=== PATIENT | male | born 1945 | race Caucasian/White ===

== ENCOUNTER 2017-08-05 19:23 | Inpatient (IN) | payer OTHER ==
--- NOTE | 2017-08-05 20:19 | RAD ---
INDICATION: Confusion and word finding COMPARISON: None. TECHNIQUE: Contiguous axial sections of the brain were obtained from the skull base to the vertex without contrast. FINDINGS: The ventricles, cisterns and sulci are within normal limits. There is very mild periventricular and subcortical white matter hypoattenuation consistent with mild microvascular disease. At the left internal capsule there is an asymmetric and more focal area of hypoattenuation (image 14 of 32). Otherwise the ross-white matter differentiation is adequately maintained and there is no sulcal effacement. No significant focal abnormality or mass effect is present. There is no evidence for intracranial hemorrhage. There is coarse atherosclerotic calcification of the bilateral vertebral arteries and petrous carotid arteries. No significant focal osseous abnormality is present. There is a focal inspissated secretion in the visualized left maxillary sinus. In the lateral right sphenoid sinus there is an air-fluid level. The mastoid air cells are well aerated. IMPRESSION: 1. No acute intracranial hemorrhage. 2. Chronic findings include evidence of microvascular disease. There is asymmetric hypodensity at the left internal capsule relative to the right which could represent a focal infarction in the correct clinical setting. Further characterization can be made with MRI of the brain as clinically indicated. Findings were reported Dr. Virk over the telephone at 2015 hours on August 05, 2017.
[2017-08-05 20:40] LABS: Hematocrit 40 % (42-52); Hemoglobin 13.4 g/dl (14.0-18.0); Mean Corpuscular HGB Conc 33 g/dl (31-36); Mean Corpuscular Hemoglobin 29 pg (27-31); Mean Corpuscular Volume 88 fL (80-94); Mean Platelet Volume 9 um3 (7.4-10.4); Red Blood Count 4.55 10^6/ul (4.0-5.4); Red Cell Distribution Width 14 % (10.5-15); White Blood Count 5.6 10^3/ul (3.5-10.8)
[2017-08-05 20:54] LABS: ALT 15 U/L (7-52); Albumin 3.7 g/dL (3.2-5.2); Alkaline Phosphatase 43 U/L (34-104); BUN/Creatinine Ratio 31.3 (8-20); Blood Urea Nitrogen 31 mg/dL (6-24); CO2 Carbon Dioxide 25 mmol/L (22-32); Calcium 8.7 mg/dL (8.6-10.3); Chloride 104 mmol/L (101-111); EGFR African American 96.1 (>60); EGFR Non-African American 74.7 (>60); Globulin 2.3 g/dL (2-4); Glucose 335 mg/dL (70-100); Sodium 134 mmol/L (133-145)
[2017-08-05 21:12] LABS: Urine Bilirubin Negative (Negative); Urine Glucose 3+(>=500 mg/dL) (Negative); Urine Nitrite Negative (Negative)
[2017-08-05 21:18] LABS: AST 17 U/L (13-39); Anion Gap 5 mmol/L (2-11); Potassium 4.3 mmol/L (3.5-5.0)
[2017-08-05] MEDS ORDERED: Aspirin Low Dose CHEW TAB* 81 MG PO ONE (21:29)
[2017-08-05] MEDS ORDERED: Acetaminophen TAB* 325 MG PO PRN (21:29)
[2017-08-05] MEDS ORDERED: Ondansetron INJ* 2 MG/ML VIAL IV PRN (21:29)
[2017-08-05] MEDS ORDERED: Albuterol 2.5 MG/3 ML NEB.SOL* (0.083%) INH PRN (21:29)
[2017-08-05] MEDS ORDERED: Melatonin (NF) 3 MG TAB PO PRN (21:29)
[2017-08-05 21:32] LABS: Alcohol < 10 mg/dL (<10)
--- NOTE | 2017-08-05 21:41 | ED ---
Roni Mccabe Tiffany, scribed for Dexter Virk MD on 08/05/17 at 1947 . Neurological HPI - HPI Summary HPI Summary: This patient is a 71 year old M presenting to [facility] accompanied by two family members with a chief complaint of difficulty finding words since this afternoon at 14:00. The patient woke up and was very confused. LKN was 08/04/17 at 23:00. Symptoms aggravated by nothing. Symptoms alleviated by nothing. Patient denies weakness, vision, hearing issues, headache, chest pain, SOB, abdominal pain, back pain, and diarrhea. The takes baby Aspirin, anti-cholesterol and anti-hypertension medications. - History of Current Complaint Chief Complaint: EDNeurologicalDeficit Stated Complaint: STROKE LIKE SYMPTOMS Hx Obtained From: Patient Onset/Duration: Started hours ago - This morning, Still Present, Worse Since - This afternoon Timing: Constant Aggravating: Nothing Alleviating: Nothing Associated Signs and Symptoms: Positive: Negative - weakness, vision, hearing issues, headache, chest pain, SOB, abdominal pain, back pain, and diarrhea. - Allergy/Home Medications Allergies/Adverse Reactions: Allergies Allergy/AdvReac Type Severity Reaction Status Date / Time No Known Allergies Allergy Verified 08/05/17 19:26 PMH/Surg Hx/FS Hx/Imm Hx Previously Healthy: No Endocrine/Hematology History: Reports: Hx Diabetes Cardiovascular History: Reports: Hx Hypercholesterolemia, Hx Hypertension - Surgical History Surgery Procedure, Year, and Place: 4x bypass - Immunization History Date of Tetanus Vaccine: unk Date of Influenza Vaccine: unk Infectious Disease History: No Infectious Disease History: Denies: Traveled Outside the [place] in Last 30 Days - Family History Known Family History: Positive: Other - Mother had stroke, father had cancer - Social History Occupation: Retired Alcohol Use: Occasionally Hx Substance Use: No Substance Use Type: Reports: None Hx Tobacco Use: Yes Smoking Status (MU): Former Smoker Review of Systems Negative: Blurred Vision Positive: Other - NEGATIVE: Hearing changes Negative: Chest Pain Negative: Shortness Of Breath Negative: Abdominal Pain, Diarrhea Positive: Other - NEGATIVE: Back pain Neurological: Other - Difficulty finding words Negative: Headache, Weakness All Other Systems Reviewed And Are Negative: Yes Physical Exam Triage Information Reviewed: Yes Vital Signs Reviewed: Yes Appearance: Positive: Well-Appearing, No Pain Distress Skin: Positive: Warm, Skin Color Reflects Adequate Perfusion Head/Face: Positive: Normal Head/Face Inspection Eyes: Positive: EOMI ENT: Positive: Normal ENT inspection Neck: Positive: Supple, Nontender Respiratory/Lung Sounds: Positive: Clear to Auscultation, Breath Sounds Present Cardiovascular: Positive: RRR. Negative: Murmur Abdomen Description: Positive: Nontender Musculoskeletal: Positive: Strength/ROM Intact Neurological: Positive: Sensory/Motor Intact, Alert, Oriented to Person Place, Time, CN Intact II-III Psychiatric: Positive: Normal - [place] Coma Scale Best Eye Response: 4 - Spontaneous Best Motor Response: 6 - Obeys Commands Best Verbal Response: 5 - Oriented Coma Scale Total: 14 Diagnostics - Laboratory Lab Results: Lab Results 08/05/17 Range/Units 19:53 POC Glucose (mg/dL) 393 H (70-100) mg/dL Result Diagrams: 08/05/17 20:33 08/05/17 20:33 Lab Statement: Any lab studies that have been ordered have been reviewed, and results considered in the medical decision making process. - CT Brain CT Interpretation Completed By: Radiologist - 1. No acute intracranial hemorrhage. 2. Chronic findings include evidence of microvascular disease. There is asymmetric hypodensity at the left internal capsule relative to the right which could represent a focal infarction in the correct clinical setting. Further characterization can be made with MRI of the brain as clinically indicated. ED physician has reviewed this radiology report and agrees. - EKG 20:10 Cardiac Rate: NL EKG Rhythm: Sinus Rhythm - 62 BPM EKG Interpretation: Non-STEMI NIH Scale - NIH Scale Level of Consciousness: Alert/Keenly Responsive Ask Patient the Month and His/Her Age: One Correct/Not Aphasic Ask Pt to Open/Close Eyes and Audio Visual Engineer/Release Non-Paretic Hand: Both Correctly Best Gaze (Only Horizontal Eye Movement): Normal Visual Field Testing: No Visual Loss Facial Paresis-Pt to Smile & Close Eyes or Grimace Symmetry: Normal/Symmetrical Motor Function - Right Arm: No Drift-Holds 10 Seconds Motor Function - Left Arm: No Drift-Holds 10 Seconds Motor Function - Right Leg: No Drift-Holds 10 Seconds Motor Function - Left Leg: No Drift-Holds 10 Seconds Limb Ataxia-Must be out of Proportion to Weakness Present: Absent Sensory (Use Pinprick to Test Arms/Legs/Trunk/Face): Normal Best Language (Describe Picture, Name Items): No Aphasia Dysarthria (Read Several Words): Normal Extinction and Inattention: No Abnormality Total Score: 1 Course/Dx - Course Course Of Treatment: 71 yr old male with difficulty with word finding, elevated blood sugar, and last well known time on 08/[address] Nova, Toxicology ordered, and admit to hospitalists, morning MRI. - Diagnoses Provider Diagnoses: Altered mental status, unspecified, Hyperglycemia Discharge - Discharge Plan Condition: Good Disposition: ADMITTED TO [facility] Referrals: No Primary Care Phys,NOPCP [Primary Care Provider] - The documentation as recorded by the Roni gardner Tiffany accurately reflects the service I personally performed and the decisions made by , Dexter Virk MD.
[2017-08-05] MEDS: NS 0.9% 1000 ML* 1,000 ML IV SCH (23:36)
--- NOTE | 2017-08-06 01:12 | HP ---
H&P (Free Text) History and Physical: PCP: Dr Sanford in [place] Date/Time: 08/05/2017 2115 CC: word searching, confusion HPI: Mr Topete is a 71YO male HX IDDM since age 18, CAD/4vCABG, HTN, & HLD who lives in [place] and is in town for [place]. He was last known normal 08/04 ~2300. This AM he awoke mildly confused and began having word searching ~1400 for which he presents. He denies focal W/N/T, change in swallow/vision, chest pain, SOB, palpitations, headache, or other issues. 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; full code status FamHx: Mother: passed in her 80s 2nd CAD; Father: passed in his 80s 2nd CAD; Sister: estranged ROS: as above, otherwise reviewed and all were negative vitals: Vital Signs Temp 36.7 C 08/05/17 22:00 Pulse 60 08/05/17 22:30 Resp 18 08/05/17 23:07 BP 137/65 08/05/17 22:30 Pulse Ox 94 08/05/17 22:30 Intake & Output 08/05/17 08/05/17 08/06/17 11:59 23:59 11:59 Weight 86.999 kg Constitutional: NAD, normally developed, well-nourished elderly white male HEENM: atraumatic; sclera/conjunctiva: anicteric/clear; hearing: clinically mildly decreased; oropharynx: clear, mucosa moist Neck: soft tissue: non-tender; thyroid: normal Pulmonary: clear to auscultation bilaterally, good aeration, no accessory muscle use CV: RR/RR, normal S1S2, no carotid bruit, no jugular venous distention, 2+ B DP/ PT, no edema Abdominal: soft, non-distended, non-tender, no rebound/guarding/rigidity, normoactive bowel sounds, no hepatosplenomegaly or masses, no costovertebral angle tenderness Musculoskeletal: general: grossly intact, no palpable tenderness Integumental: normal appearance and texture of exposed skin Neurological cranial nerves II: visual patterson tested & intact B III/IV/: symmetric light reflex, EOMI/PERRLA V: intact facial sensation VII: mild R facial droop VIII: hearing mildly decreased AU IX/X: symmetric palatal motion, no dysarthria XII: midline tongue protrusion, normal vocal articulation motor: R handed LUE: 4+/5 proximally, distally, & machine feeder floorperson strength RUE: 4+/5 proximally, distally, & machine feeder floorperson strength LLE: 4+/5 proximally & distally RLE: 4+/5 proximally & distally coordination finger/nose: slow/intact symmetric B heal/alonzo: intact B dysdiadochokinesia: present equally bilaterally sensory crude touch: intact globally vibration: detects "burning sensation" BLE, "vibration" BUE proprioception: intact x4 DTRs biceps: 1+ B triceps: 1+ B brachioradialis: 1+ B patellar: 1+ B Achilles: trace B Babinski: equivocal B Psychiatric orientation: AA&O to PPS affect: calm to mildly frustrated w/ word searching mood: cooperative eye contact: good content: reliable responses: timely insight: fair to good Testing: Lab Results 08/05/17 08/05/17 08/05/17 Range/Units 19:53 20:33 20:33 WBC 5.6 (3.5-10.8) 10^3/ul RBC 4.55 (4.0-5.4) 10^6/ul Hgb 13.4 L (14.0-18.0) g/dl Hct 40 L (42-52) % MCV 88 (80-94) fL MCH 29 (27-31) pg MCHC 33 (31-36) g/dl RDW 14 (10.5-15) % Plt Count 210 (150-450) 10^3/ul MPV 9 (7.4-10.4) um3 Neut % (Auto) 59.6 (38-83) % Lymph % (Auto) 26.7 (25-47) % [place] % (Auto) 10.0 H (1-9) % Eos % (Auto) 3.5 (0-6) % Baso % (Auto) 0.2 (0-2) % Absolute Neuts (auto) 3.4 (1.5-7.7) 10^3/ul Absolute Lymphs (auto) 1.5 (1.0-4.8) 10^3/ul Absolute Monos (auto) 0.6 (0-0.8) 10^3/ul Absolute Eos (auto) 0.2 (0-0.6) 10^3/ul Absolute Basos (auto) 0 (0-0.2) 10^3/ul Absolute Nucleated RBC 0.02 10^3/ul Nucleated RBC % 0.3 INR (Anticoag Therapy) (0.89-1.11) APTT (26.0-36.3) seconds Sodium 134 (133-145) mmol/L Potassium 4.3 (3.5-5.0) mmol/L Chloride 104 (101-111) mmol/L Carbon Dioxide 25 (22-32) mmol/L Anion Gap 5 (2-11) mmol/L BUN 31 H (6-24) mg/dL Creatinine 0.99 (0.67-1.17) mg/dL Est GFR ( Amer) 96.1 (>60) Est GFR (Non-Af Amer) 74.7 (>60) BUN/Creatinine Ratio 31.3 H (8-20) Glucose 335 H (70-100) mg/dL POC Glucose (mg/dL) 393 H (70-100) mg/dL Hemoglobin A1c (4.0-5.6) % Lactic Acid (0.5-2.0) mmol/L Calcium 8.7 (8.6-10.3) mg/dL Total Bilirubin 0.30 (0.2-1.0) mg/dL AST 17 (13-39) U/L ALT 15 (7-52) U/L Alkaline Phosphatase 43 (34-104) U/L Ammonia (16-53) mol/L Troponin I 0.00 (<0.04) ng/mL Total Protein 6.0 L (6.4-8.9) g/dL Albumin 3.7 (3.2-5.2) g/dL Globulin 2.3 (2-4) g/dL Albumin/Globulin Ratio 1.6 (1-3) Urine Color Urine Appearance Urine pH (5-9) Ur Specific [place] (1.010-1.030) Urine Protein (Negative) Urine Ketones (Negative) Urine Blood (Negative) Urine Nitrate (Negative) Urine Bilirubin (Negative) Urine Urobilinogen (Negative) Ur Leukocyte Esterase (Negative) Urine Glucose (Negative) Serum Alcohol < 10 (<10) mg/dL 08/05/17 08/05/17 08/05/17 Range/Units 20:33 20:33 20:33 WBC (3.5-10.8) 10^3/ul RBC (4.0-5.4) 10^6/ul Hgb (14.0-18.0) g/dl Hct (42-52) % MCV (80-94) fL MCH (27-31) pg MCHC (31-36) g/dl RDW (10.5-15) % Plt Count (150-450) 10^3/ul MPV (7.4-10.4) um3 Neut % (Auto) (38-83) % Lymph % (Auto) (25-47) % [place] % (Auto) (1-9) % Eos % (Auto) (0-6) % Baso % (Auto) (0-2) % Absolute Neuts (auto) (1.5-7.7) 10^3/ul Absolute Lymphs (auto) (1.0-4.8) 10^3/ul Absolute Monos (auto) (0-0.8) 10^3/ul Absolute Eos (auto) (0-0.6) 10^3/ul Absolute Basos (auto) (0-0.2) 10^3/ul Absolute Nucleated RBC 10^3/ul Nucleated RBC % INR (Anticoag Therapy) 1.01 (0.89-1.11) APTT 28.9 (26.0-36.3) seconds Sodium (133-145) mmol/L Potassium (3.5-5.0) mmol/L Chloride (101-111) mmol/L Carbon Dioxide (22-32) mmol/L Anion Gap (2-11) mmol/L BUN (6-24) mg/dL Creatinine (0.67-1.17) mg/dL Est GFR ( Amer) (>60) Est GFR (Non-Af Amer) (>60) BUN/Creatinine Ratio (8-20) Glucose (70-100) mg/dL POC Glucose (mg/dL) (70-100) mg/dL Hemoglobin A1c 7.7 H (4.0-5.6) % Lactic Acid 0.6 (0.5-2.0) mmol/L Calcium (8.6-10.3) mg/dL Total Bilirubin (0.2-1.0) mg/dL AST (13-39) U/L ALT (7-52) U/L Alkaline Phosphatase (34-104) U/L Ammonia (16-53) mol/L Troponin I (<0.04) ng/mL Total Protein (6.4-8.9) g/dL Albumin (3.2-5.2) g/dL Globulin (2-4) g/dL Albumin/Globulin Ratio (1-3) Urine Color Urine Appearance Urine pH (5-9) Ur Specific [place] (1.010-1.030) Urine Protein (Negative) Urine Ketones (Negative) Urine Blood (Negative) Urine Nitrate (Negative) Urine Bilirubin (Negative) Urine Urobilinogen (Negative) Ur Leukocyte Esterase (Negative) Urine Glucose (Negative) Serum Alcohol (<10) mg/dL 08/05/17 08/05/17 Range/Units 21:00 22:28 WBC (3.5-10.8) 10^3/ul RBC (4.0-5.4) 10^6/ul Hgb (14.0-18.0) g/dl Hct (42-52) % MCV (80-94) fL MCH (27-31) pg MCHC (31-36) g/dl RDW (10.5-15) % Plt Count (150-450) 10^3/ul MPV (7.4-10.4) um3 Neut % (Auto) (38-83) % Lymph % (Auto) (25-47) % [place] % (Auto) (1-9) % Eos % (Auto) (0-6) % Baso % (Auto) (0-2) % Absolute Neuts (auto) (1.5-7.7) 10^3/ul Absolute Lymphs (auto) (1.0-4.8) 10^3/ul Absolute Monos (auto) (0-0.8) 10^3/ul Absolute Eos (auto) (0-0.6) 10^3/ul Absolute Basos (auto) (0-0.2) 10^3/ul Absolute Nucleated RBC 10^3/ul Nucleated RBC % INR (Anticoag Therapy) (0.89-1.11) APTT (26.0-36.3) seconds Sodium (133-145) mmol/L Potassium (3.5-5.0) mmol/L Chloride (101-111) mmol/L Carbon Dioxide (22-32) mmol/L Anion Gap (2-11) mmol/L BUN (6-24) mg/dL Creatinine (0.67-1.17) mg/dL Est GFR ( Amer) (>60) Est GFR (Non-Af Amer) (>60) BUN/Creatinine Ratio (8-20) Glucose (70-100) mg/dL POC Glucose (mg/dL) (70-100) mg/dL Hemoglobin A1c (4.0-5.6) % Lactic Acid (0.5-2.0) mmol/L Calcium (8.6-10.3) mg/dL Total Bilirubin (0.2-1.0) mg/dL AST (13-39) U/L ALT (7-52) U/L Alkaline Phosphatase (34-104) U/L Ammonia 60 H (16-53) mol/L Troponin I (<0.04) ng/mL Total Protein (6.4-8.9) g/dL Albumin (3.2-5.2) g/dL Globulin (2-4) g/dL Albumin/Globulin Ratio (1-3) Urine Color Yellow Urine Appearance Clear Urine pH 5.0 (5-9) Ur Specific [place] 1.030 (1.010-1.030) Urine Protein Negative (Negative) Urine Ketones Trace H (Negative) Urine Blood Negative (Negative) Urine Nitrate Negative (Negative) Urine Bilirubin Negative (Negative) Urine Urobilinogen Negative (Negative) Ur Leukocyte Esterase Negative (Negative) Urine Glucose 3+(>=500 mg/dl) H (Negative) Serum Alcohol (<10) mg/dL ECG, personally reviewed: NSR rate 62, unifocal PVCs, non-specific ST/T changes vs artifact diffusely CT brain WO, personally reviewed: IMPRESSION: 1. No acute intracranial hemorrhage. 2. Chronic findings include evidence of microvascular disease. There is asymmetric hypodensity at the left internal capsule relative to the right which could represent a focal infarction in the correct clinical setting. Further characterization can be made with MRI of the brain as clinically indicated. Impression: 71M presenting with acute/subacute CVA DIAGNOSIS & PLAN Primary acute/subacute CVA : aspirin : telemetry : MRI in AM : ECHO in AM : neurochecks : supplemental oxygen : PT/OT evaluations : lipid profile in AM : NPO until bedside swallow passed : supportive care Secondary IDDM [id number] : hold insulin pump : A1c 7.7 : insulin carb ratio diet : basal/bolus/correctional insulin CAD/4vCABG : continue aspirin HTN : continue lisinopril HLD : continue atorvastatin Admission Rational: observatio for CVA work up DVTp: heparin SQ & SCDs Code Status: full HCP:
[2017-08-06] MEDS: Heparin VIAL(*) 5000 UNITS/ML VIAL (FIVE THOUSAND) SUBCUT SCH ×3 (05:17→21:31)
[2017-08-06 05:45] LABS: HDL Cholesterol 43.7 mg/dL
[2017-08-06] MEDS ORDERED: Omeprazole CAP* 20 MG PO SCH (06:00)
[2017-08-06] MEDS: Insulin LISPRO* 1 UNITS UNIT SUBCUT SCH ×7 (08:08→22:36)
[2017-08-06] MEDS: Docusate CAP* 100 MG PO SCH ×2 (08:09→21:31)
[2017-08-06] MEDS ORDERED: Aspirin EC Low Dose* 81 MG TAB.EC PO SCH (09:00)
--- NOTE | 2017-08-06 10:19 | PN ---
Subjective Date of Service: 08/06/17 Interval History: This is a 71 yo male with type I DM, CAD with h/o CABG, HTN, HLD who presented with confusion and aucte onset of word finding difficulties. Patient did have some transient hypoglycemia (40s) yesterday, which his initially equated his symptoms to, but as the day went on his symptoms did not improve. No associated weakness, numbness, vision changes, CP, SOB, abd pain, n/v. No h/o similar symptoms. Noted mild elevation of ammonia on initial labs, patient denies any h/o liver disease or alcoholism. This am, patient remains mildly confused. Symptoms are essentially unchanged per his . Objective Active Medications: Acetaminophen (Tylenol Tab*) 650 mg PO Q6H PRN PRN Reason: FEVER/PAIN Albuterol (Ventolin 2.5 Mg/3 Ml Neb.Yamileth*) 2.5 mg INH Q2H PRN PRN Reason: SOB/WHEEZING Aspirin (Aspirin Ec Low Dose*) 81 mg PO DAILY [facility] Last Admin: 08/06/17 08:09 Dose: 81 mg Docusate Sodium (Colace Cap*) 200 mg PO BID [facility] Last Admin: 08/06/17 08:09 Dose: 200 mg Heparin Sodium (Porcine) (Heparin Vial(*)) 5,000 units SUBCUT Q8HR [facility] Last Admin: 08/06/17 05:17 Dose: 5,000 units Sodium Chloride (Ns 0.9% 1000 Ml*) 1,000 mls @ 50 mls/hr IV PER RATE [facility] Last Admin: 08/05/17 23:36 Dose: 50 mls/hr Insulin Glargine (Lantus(*)) 14 units 0.16 units/kg (14 units) SUBCUT Q24H [facility] Stop: 08/07/17 20:00 Insulin Human Lispro (Humalog*) 0 units SUBCUT AC [facility] PRN Reason: Protocol Last Admin: 08/06/17 08:34 Dose: 1 units Insulin Human Lispro (Humalog*) 0 units SUBCUT ACHS [facility] PRN Reason: Protocol Last Admin: 08/06/17 08:08 Dose: 8 units Melatonin (Melatonin (Nf)) 3 mg PO BEDTIME PRN; Protocol PRN Reason: Sleep Omeprazole (Prilosec Cap*) 20 mg PO DAILY@0600 [facility] Last Admin: 08/06/17 05:17 Dose: 20 mg Ondansetron HCl (Zofran Inj*) 4 mg IV Q6H PRN PRN Reason: NAUSEA Vital Signs: Temp Pulse Resp BP Pulse Ox 97.7 F 75 18 143/60 94 08/06/17 07:30 08/06/17 07:30 08/06/17 08:00 08/06/17 07:30 08/06/17 07:30 Oxygen Devices in Use Now: None Appearance: Fatigued appearing 71 yo gentleman in NAD, accompanied by his . Respiratory: Symmetrical Chest Expansion and Respiratory Effort, Clear to Auscultation Cardiovascular: NL Sounds; No Murmurs; No JVD, RRR Abdominal: NL Sounds; No Tenderness; No Distention Extremities: No Edema Skin: No Rash or Ulcers Neurological: Alert and Oriented x 3, - - planning associate II-XII intact, nl finger to nose, able to name 5 objects without difficulty Result Diagrams: 08/05/17 20:33 08/05/17 20:33 Additional Lab and Data: Vital Signs: Temp Pulse Resp BP Pulse Ox 97.7 F 75 18 143/60 94 08/06/17 07:30 08/06/17 07:30 08/06/17 08:00 08/06/17 07:30 08/06/17 07:30 Diagnostic Imaging: CT brain - subtle hypodensity of the L internal capsule EKG - sinus, PVCs Assess/Plan/Problems-Billing Assessment: This is a 71 yo male with type I DM, CAD s/p CABG 2005, HTN, HLD who is visiting from [place] who presented with c/o confusion and word finding difficulty. - Patient Problems (1) Altered mental status Comment: Confusion and word finding difficulty Possible CVA, subtle hypodensity noted on CT, will need MRI to confirm presence of infarct Symptoms remain unchanged No focal deficits on exam Pending neurology consultation and MRI of the brain (2) Hyperammonemia Comment: Ammonia mildly elevated on initial labs No indication of liver disease No medications that would contribute Plan to repeat lab (3) Diabetes Comment: Type I Well controlled with HgbA1c 7.7% on an insulin pump Pump stopped Treat with SQ basal/bolus insulin during his hospitalization (4) Hypertension Comment: Normotensive Lisinopril held at this time to avoid hypotension (5) Hyperlipidemia Comment: LDL below target Cont statin (6) Full code status (7) DVT prophylaxis Comment: SQ heparin Status and Disposition: Transition to inpatient. Pending MRI brain and formal neurology consult.
[2017-08-06] MEDS ORDERED: Iodixanol* (CONTRAST) 320 MG/ML 100 ML SDV IV ONE (12:00)
[2017-08-06] MEDS: Insulin GLARGINE(*) 1 UNITS UNIT SUBCUT SCH (12:26)
[2017-08-06] MEDS: Clopidogrel TAB* 75 MG PO SCH (12:26)
--- NOTE | 2017-08-06 12:37 | RAD ---
INDICATION: Cerebrovascular accident. COMPARISON: Comparison is made with a prior CT of the brain from August 05, 2017. TECHNIQUE: A CT angiogram of the head and neck was performed following intravenous injection of 80 ml of Visipaque 320 nonionic contrast. Contiguous axial sections were obtained from the thoracic inlet through the skull vertex. Images were reconstructed in the coronal and sagittal planes and in a 3-D volume rendered format. The distal cervical internal carotid artery diameter is used as the denominator for stenosis measurement. FINDINGS: RIGHT CAROTID: There is moderate calcific plaque present within the carotid bulb and proximal internal carotid artery giving rise to approximately a 30% stenosis. No hemodynamically significant stenosis is seen. LEFT CAROTID: There is moderate calcific plaque present within the carotid bulb and proximal internal carotid artery giving rise to approximately a 30-40% stenosis. No hemodynamically significant stenosis is seen. VERTEBRALS: There is moderate calcific plaque which is most prominent in the distal vertebral arteries. No no high-grade stenosis or occlusion is seen. CTA BRAIN: The internal carotid, anterior and middle cerebral arteries appear patent without evidence for high-grade stenosis or occlusion. There is moderate calcific plaque within the petrous and cavernous portion of the internal carotid arteries on both sides. The vertebral, basilar and posterior cerebral arteries appear patent without evidence for high-grade stenosis or occlusion. There is focal decreased density in the region of the left internal capsule and periventricular white matter suspicious for an infarct which appears slightly more prominent than on the prior study. No aneurysm or vascular malformation is seen. NECK: No significant enlarged lymph nodes are seen within the neck. The thyroid, parotid and submandibular glands appear to be within normal limits. The lung apices appear clear. There is mild mucosal thickening within the maxillary and ethmoid sinuses with small nodular densities in both maxillary sinuses most consistent with mucous retention cysts or polyps. The mastoid air cells appear clear. IMPRESSION: 1. MODERATE ATHEROSCLEROTIC CHANGES, NO EVIDENCE FOR HEMODYNAMICALLY SIGNIFICANT CAROTID STENOSIS. 2. FINDINGS MOST CONSISTENT WITH AN ACUTE TO SUBACUTE INFARCT IN THE REGION OF THE ANTERIOR LIMB OF THE LEFT INTERNAL CAPSULE AND PERIVENTRICULAR WHITE MATTER. 3. NO EVIDENCE FOR LARGE VESSEL INTRACRANIAL THROMBUS. CPT II Codes: 3100F
--- NOTE | 2017-08-06 12:58 | CONS ---
CONSULTATION REPORT: DATE OF CONSULT: 08/06/17 HISTORY OF PRESENT ILLNESS: Mr. Topete is a 71-year-old right-handed man who has had no prior stroke, but yesterday morning awoke, having word finding difficulties and he says that his main problem is with his speech. There has been a mild confusion in addition, but he identifies the problem is word finding difficulties and speech. He has had coronary artery disease, 4-vessel CABG, hypertension, hyperlipidemia, who is in town from [place] for a giving. He has no weakness, numbness, visual changes. No chest pain, shortness of breath, headache. He should also get carotid studies. I do not think he did. Of note, he has had diabetes for 53 years, coronary artery disease. He is also a former smoker, but none for several year's time. PAST MEDICAL HISTORY: He had his CABG. MEDICATIONS: Include: 1. Aspirin 81 mg daily. 2. Atorvastatin 40 mg daily. 3. Insulin pump therapy. 4. Lisinopril 5 mg daily. ALLERGIES: He has no known drug allergies. FAMILY HISTORY: His mother in 80s of the second heart attack and the father in his 80s also with a second heart attack. There is no family history for a stroke. SOCIAL HISTORY: He is a former smoker. Drinks 1 bottle of wine weekly. 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 REVIEW OF SYSTEMS: Negative in all 14 spheres other than the HPI. PHYSICAL EXAM: Temperature 97.7, pulse 75, respiratory rate is 18, blood pressure 143/60. He was alert and oriented x3. He could name body part and objects well without problem; however, in spontaneous speech, he would make occasional word finding mistakes for assessment asked. If he was on aspirin, he said yes. He was on a small toast and there were 2 other similar mistakes in the course of conversation. He said that this was his main problem since he woke up yesterday, but this was better now than he had been. Cranial nerves II through XII were intact other than a subtle right facial weakness, upper motor neuron type. Fundi were benign. Discs were sharp. Rest of the cranial nerves were normal. Motor strength revealed normal tone, strength, coordination. Negative pronator drift. Sensation intact to light touch. Reflexes were 1 and equal. Trace ankle jerks downgoing toes. Neck: Supple. Chest clear. Cardiovascular: Regular rate and rhythm. Abdomen: Soft with positive bowel sounds. DIAGNOSTIC STUDIES/LAB DATA: I reviewed his CT films, which showed a hypodensity in the thalamus, left internal capsule. Age could not be determined from scan. His EKG was in sinus rhythm. Blood sugar is 340. LDL was 44. He had normal CMP and BUN of 31. Hemoglobin A1c 7.7. Ammonia level was 60. IMPRESSION: Mr. Topete has mild aphasia and his symptoms are most likely from stroke rather than a global confusion despite the slightly elevated ammonia which was being rechecked. It is hard to determine just from the CT scan by itself although the lesion seen in his left subcortical area as the acute event, but it could be in an MRI scan would be able to better sort this out and would be reasonable to obtain the between the next day or so. Reasonable also to check his echo as being done as well as carotid studies. His LDL is well controlled on his statins and I would switch from aspirin to Plavix at this point. Thank you for sharing this case. [id number]/[facility] #: [id number] AGUILAR
[2017-08-06] MEDS: NS 0.9% 1000 ML* 1,000 ML IV SCH ×2 (17:27→17:32)
[2017-08-06] MEDS ORDERED: Insulin GLARGINE(*) 1 UNITS UNIT SUBCUT SCH (21:00)
[2017-08-07] MEDS ORDERED: Pantoprazole TAB (NF) 40 MG TAB PO SCH (06:00)
[2017-08-07] MEDS: Heparin VIAL(*) 5000 UNITS/ML VIAL (FIVE THOUSAND) SUBCUT SCH (07:29)
[2017-08-07] MEDS ORDERED: Atorvastatin* 40 MG TAB PO SCH (09:00)
[2017-08-07] MEDS: Insulin LISPRO* 1 UNITS UNIT SUBCUT SCH ×4 (09:47→13:08)
[2017-08-07] MEDS: Insulin GLARGINE(*) 1 UNITS UNIT SUBCUT SCH (09:47)
[2017-08-07] MEDS: Docusate CAP* 100 MG PO SCH (09:48)
[2017-08-07] MEDS: Clopidogrel TAB* 75 MG PO SCH (09:48)
--- NOTE | 2017-08-07 10:48 | RAD ---
INDICATION: CVA. COMPARISON: Comparison is made with a prior CT of the brain from August 05, 2014. TECHNIQUE: Sagittal T1, axial T1, T2, susceptibility, FLAIR and diffusion weighted images were obtained. FINDINGS: The ventricles, cisterns and sulci appear prominent consistent with age-related atrophy. There are small focal areas of increased signal intensity on T2-weighted images present within the subcortical and periventricular white matter most consistent with mild chronic small vessel ischemic changes. In addition there is a 1.8 x 1.3 cm focal area of increased signal intensity on T2-weighted images with associated restricted diffusion present in the left periventricular white matter also involving genu of the internal capsule and the adjacent lentiform nucleus. This would be consistent with an infarct and correlates with the area of decreased density on the prior CT angiogram of the head. There is no evidence for hemorrhage. No mass effect is present. There is mucosal thickening within the ethmoid and maxillary sinuses. No air-fluid levels are present. IMPRESSION: FINDINGS CONSISTENT WITH A NONHEMORRHAGIC INFARCT PRESENT IN THE LEFT PERIVENTRICULAR WHITE MATTER, GENU OF THE INTERNAL CAPSULE AND ADJACENT LENTIFORM NUCLEUS.
[2017-08-07 12:16] VITALS: BP 131/65
--- NOTE | 2017-08-07 13:30 | ECHO ---
Patient: JORDAN MARQUEZ [facility] Rec#: [id number] : 1945 Date: 08/07/2017 Age: 71y Height: 180.34 cm / 71.0 in Weight: 85.28 kg / 188.0 lbs Sex: M BSA: 2.05 Room#: 437 Admit Date#: 08/06/2017 Type: Inpatient Referring: Billy Heck MD Reading: Es Terrell MD Knowledge Architect: [facility] Transthoracic Echocardiogram Indication: CVA BP: 109/52 HR: 81 Rhythm: NSR with PVCs Findings History: IDDM since age 18, CAD with 4 vessel CABG, HTN, HLD, former smoker. Technical Comments: The study quality is good. Completed at 1145. Left Ventricle: The left ventricular chamber size is normal. Mild concentric left ventricular hypertrophy is observed. Global left ventricular wall motion and contractility are within normal limits. Left ventricular systolic function is at the lower limits of normal. The estimated ejection fraction is 50-55%. Post surgical hypokinesis of the interventricular septum is observed consistent with coronary artery bypass. Abnormal left ventricular diastolic function is observed. Abnormal left ventricular diastolic filling is observed, consistent with impaired relaxation. Left Atrium: The left atrium is mildly dilated. Right Ventricle: Moderator Band present. The right ventricle is mild to moderately dilated. The right ventricular global systolic function is low normal. Right Atrium: The right atrium is mildly dilated. Interatrial septum appears intact without evidence of shunting. The bubble study is negative. A patent foramen ovale is not demonstrated with color Doppler and agitated contrast. Aortic Valve: The aortic valve is trileaflet. The aortic valve leaflets are mildly thickened. There is aortic annular calcification. There is a trace of aortic regurgitation. There is no evidence of aortic stenosis. Mitral Valve: There is mitral annular calcification. The mitral valve leaflets are moderately thickened. There is mild mitral regurgitation. There is no evidence of mitral stenosis. Tricuspid Valve: The tricuspid valve leaflets are normal. There is trace to mild tricuspid regurgitation. The right ventricular systolic pressure is estimated at 36 mmHg. There is evidence of mild pulmonary hypertension. There is no tricuspid stenosis. Pulmonic Valve: The pulmonic valve appears normal. There is trace to mild pulmonic regurgitation. There is no pulmonic stenosis. Pericardium: There is no significant pericardial effusion. Aorta: There is no dilatation of the ascending aorta. There is no dilatation of the aortic arch. There is mild dilatation of the aortic root. Pulmonary Artery: The main pulmonary artery appears normal. Venous: The inferior vena cava is dilated. There is a greater than 50% respiratory change in the inferior vena cava dimension. Contrast: Normal saline was used as contrast for the bubble study. Image 91. Intravenous contrast was used to help determine presence of intracardiac shunting. Summary: There was not any prior study for comparison. Conclusions The left ventricular chamber size is normal. Mild concentric left ventricular hypertrophy is observed. The estimated ejection fraction is 50-55%. Post surgical hypokinesis of the interventricular septum is observed consistent with coronary artery bypass. Abnormal left ventricular diastolic filling is observed, consistent with impaired relaxation. The left atrium is mildly dilated. The bubble study is negative. A patent foramen ovale is not demonstrated with color Doppler and agitated contrast. There is a trace of aortic regurgitation. There is mild mitral regurgitation. There is trace to mild tricuspid regurgitation. There is evidence of mild pulmonary hypertension. There is trace to mild pulmonic regurgitation. Measurements Name Value Normal Range RVIDd (AP) 2D 3.4 cm (0.9 - 2.6) RVDdMajor (2D) 5.2 cm (2.2 - 4.4) RAd ISD 4CH 5.4 cm (3.4 - 4.9) RA (A4C)W 4 cm (2.9 - 4.6) IVSd (2D) 1.1 cm (0.6 - 1) LVPWd (2D) 1.1 cm (0.6 - 1) LVIDd (2D) 4.8 cm (3.6 - 5.4) LVIDs (2D) 3.9 cm - LV FS (2D) 19 % (25 - 45) Aortic Annulus 1.8 cm (1.4 - 2.6) Ao root diameter (2D) 3.7 cm (2.1 - 3.5) Ascending Ao 3.3 cm (2.1 - 3.4) Aortic arch 2.8 cm (1.8 - 3.4) LA dimension (AP) 2D 4.3 cm (2.3 - 3.8) LAd ISD 4CH 5.5 cm (2.9 - 5.3) LA ISD 4CH W 4.5 cm (2.5 - 4.5) Name Value Normal Range LA ESV SP 4CH (A/L) 72 ml - LA ESV SP 2CH (A/L) 75 ml - LA ESV BP (A/L) 77 ml - LA ESV BP (A/L) index 38 ml/m2 - LA ESV SP 4CH (MOD) 66 ml - LA ESV SP 2CH (MOD) 71 ml - Name Value Normal Range MV E-wave Vmax 0.91 m/sec - MV deceleration time 239.2 msec - MV A-wave Vmax 1.06 m/sec - MV E:A ratio 0.86 ratio - LV septal e' Vmax 0.05 m/sec - LV lateral e' Vmax 0.09 m/sec - LV E:e' septal ratio 18 ratio - LV E:e' lateral ratio 10 ratio - Name Value Normal Range AV Vmax 1.4 m/sec - AV VTI 29.25 cm - AV peak gradient 7.73 mmHg - AV mean gradient 3.75 mmHg - LVOT Vmax 1.08 m/sec - LVOT VTI 25.1 cm - LVOT peak gradient 4.7 mmHg - LVOT mean gradient 2.41 mmHg - ALLAN Vmax 0.82 m/sec - Name Value Normal Range TR Vmax 2.3 m/sec - TR peak gradient 21 mmHg - RAP 15 mmHg - RVSP 36 mmHg - IVC diameter 2.1 cm - Name Value Normal Range PV Vmax 0.82 m/sec - PV peak gradient 2.68 mmHg - WI end-diastolic Vmax 0.94 m/sec -
--- NOTE | 2017-08-08 02:51 | DS ---
CC: Dr. Nnamdi Man * DISCHARGE SUMMARY: DATE OF ADMISSION: 08/05/17 DATE OF DISCHARGE: 08/07/17 PRIMARY CARE PROVIDER: Dr. Nnamdi Man associated with [place], [place]. CONSULTING NEUROLOGIST: Abdifatah Nova MD DISCHARGING PROVIDER: MARGRET Simon. 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 SECONDARY DISCHARGE DIAGNOSES: 1. Type 1 diabetes, well controlled with the use of insulin pump. 2. Coronary artery disease, status post 4-vessel CABG in 2005. 3. Hypertension. 4. Hyperlipidemia. DISCHARGE MEDICATIONS: 1. Atorvastatin 40 mg p.o. daily. 2. Plavix 75 mg p.o. daily. 3. Regular insulin with the use of an insulin pump per prior instructions. 4. Lisinopril 5 mg p.o. daily. MEDICATION CHANGES: 1. Stop aspirin. 2. Start Plavix. HOSPITAL IMAGIN. CT of the brain shows no acute intracranial hemorrhage. Chronic findings including evidence of microvascular disease and asymmetric hypodensity in the left internal capsule, which could represent focal infarct. 2. MRI of the brain shows findings consistent with nonhemorrhagic infarct present in the left periventricular white matter genu of the internal capsule and adjacent lentiform nucleus. 3. CTA of the head and neck shows moderate atherosclerotic disease but no evidence of hemodynamically significant carotid stenosis. There are findings consistent with an acute subacute infarct in the region of the anterior limb of the left internal capsule and periventricular white matter. No evidence for large vessel intracranial thrombus. 4. Transthoracic echocardiogram shows mild concentric left ventricular hypertrophy. Estimated EF of 50% to 55%. There is evidence of diastolic dysfunction. Bubble study is negative. No PFO. No significant valvular disease. HOSPITAL COURSE: This is a very pleasant 71-year-old gentleman with type 1 diabetes managed with an insulin pump as well as a history of coronary disease status post CABG several years ago as well as hypertension and hyperlipidemia who presented to the emergency department with sudden onset of confusion and some difficulty with word finding. The patient had woken up somewhat confused. He also had some associated hypoglycemia, which his blames on his confusion. The confusion really did not improve throughout the day and then he had a more sudden onset of word finding difficulty, which prompted the visit to the emergency department. The patient and his are visiting their son from out of town. They primarily live in [place]. When the patient reached the emergency department, CBC was unremarkable, coags within normal limits and chemistries showed only hyperglycemia. Initial CT of the brain was performed which showed concern for a possible focal hypodensity consistent with subacute infarct but no mass effect or hemorrhage noted. The patient was subsequently admitted to the hospital and was seen by neurologist, Dr. Nova. The patient was switched from aspirin to Plavix per Neurology recommendations. Fasting lipid panel was completed, which showed LDL below target at 44 mg/dL. An MRI of the brain was performed, which confirmed the presence of a left thalamic stroke and echocardiogram was completed, which was largely unremarkable with the exception of some mild diastolic dysfunction. The patient's word finding difficulties and overall confusion improved throughout his hospital stay. He stated that every once in a while, he was still mixing up a couple of words but significantly better than at the time of admission. DISPOSITION AND FOLLOWUP PLAN: The patient is being discharged to home. He and his plan to return home to [place] likely tomorrow. His assures me that she will do the driving. Medication changes are outlined above. The patient should follow up with his primary care provider shortly after returning home within the next week or so and consider referral to speech therapy if he continues to have some word finding difficulty. TIME SEEN: Greater than 30 minutes was spent on this discharge. MARGRET SIMON [id number]/[facility] #: [id number] AGUILAR
== END 2017-08-07 14:04 | disposition home or self-care (01) | DRG 45 ==
LOC: ED 19:23 → MEDTELE 21:26 → OBSVTOIN 08-06 10:39
PROVIDERS: ADMIT Hospitalist; ATTEND Hospitalist
DX: I63.8 Other cerebral infarction (principal); E72.20 Disorder of urea cycle metabolism, unspecified; I11.9 Hypertensive heart disease without heart failure; E10.9 Type 1 diabetes mellitus without complications; R47.01 Aphasia; I25.10 Atherosclerotic heart disease of native coronary artery without angina pectoris; Z95.1 Presence of aortocoronary bypass graft; Z79.4 Long term (current) use of insulin; Z96.41 Presence of insulin pump (external) (internal); E78.5 Hyperlipidemia, unspecified; Z79.82 Long term (current) use of aspirin; Z79.899 Other long term (current) drug therapy; Z87.891 Personal history of nicotine dependence; Z82.49 Family history of ischemic heart disease and other diseases of the circulatory system
CPT/HCPCS: 36415; 70450; 70496; 70498; 70551; 80053; 80061; 80320; 81003; 82140; 83036; 83605; 84484; 85025; 85610; 85730; 93005; 93306; A9270-GY; G0480; G8978-GP-CH; G8979-GP-CH; G8980-GP-CH; J1644; Q9967